=== PATIENT | female | born 1990 | race Caucasian/White ===

== ENCOUNTER 2017-07-25 23:06 | Emergency (ER) | payer SELFPAY ==
[2017-07-25] MEDS ORDERED: HYDROcodone/Acetaminophen 10/325 mg Tablet ONE (23:29)
[2017-07-25] MEDS ORDERED: Lidocaine 1% (PF) 30 ML VIAL ONE (23:36)
== END 2017-07-26 00:04 | disposition home or self-care (01) ==
LOC: ERS 23:06
DX: N76.4 Abscess of vulva (principal); F17.200 Nicotine dependence, unspecified, uncomplicated; E28.2 Polycystic ovarian syndrome
CPT/HCPCS: 56405; 87070; 87077; 87205; 99406; J2001

== ENCOUNTER 2019-04-19 13:50 | Emergency (ER) | payer SELFPAY ==
[2019-04-19] MEDS ORDERED: Adacel (T-DAP) 0.5 ML SYRINGE ONE (14:26)
[2019-04-19] MEDS ORDERED: HYDROcodone/Acetaminophen 10/325 mg Tablet ONE (14:36)
[2019-04-19] MEDS ORDERED: Lidocaine 4% Cream 5 GM TUBE w/ Tegaderm ONE (14:36)
[2019-04-19] MEDS ORDERED: Lidocaine 1% w/Epinephrine 1:100K 20 ML VIAL ONE (14:37)
--- NOTE | 2019-04-19 14:42 | RAD ---
XR Foot Lt 3 View STANDARD INDICATION: Stepped on a yardstick COMPARISON: None. FINDINGS: Bones: No acute fracture identified. Joints: Joints spaces appear preserved. Lisfranc alignment: Lisfranc alignment appears within normal limits. Soft tissues: No soft tissue injury demonstrated. No radiographic foreign body demonstrated. IMPRESSION: No acute osseous abnormality.
== END 2019-04-19 16:08 | disposition home or self-care (01) ==
LOC: ERS 13:50
DX: S91.312A Laceration without foreign body, left foot, initial encounter (principal); F17.210 Nicotine dependence, cigarettes, uncomplicated; W22.8XXA Striking against or struck by other objects, initial encounter
CPT/HCPCS: 12002; 90471; 90715

== ENCOUNTER 2019-04-30 13:52 | Emergency (ER) | payer SELFPAY | END 2019-04-30 14:18 | disposition home or self-care (01) | LOC: ERS 13:52 | DX: S91.312D Laceration without foreign body, left foot, subsequent encounter (principal); F17.210 Nicotine dependence, cigarettes, uncomplicated | CPT/HCPCS: 99282 ==

== ENCOUNTER 2019-05-06 13:11 | Emergency (ER) | payer OTHER, SELFPAY | END 2019-05-06 15:27 | disposition home or self-care (01) | LOC: ERS 13:11 | DX: S91.312D Laceration without foreign body, left foot, subsequent encounter (principal); F17.210 Nicotine dependence, cigarettes, uncomplicated; Z79.899 Other long term (current) drug therapy; X58.XXXD Exposure to other specified factors, subsequent encounter | CPT/HCPCS: 36416; 99283 ==

== ENCOUNTER 2019-05-21 14:40 | Emergency (ER) | payer SELFPAY ==
[2019-05-21] MEDS ORDERED: CEFAZOLIN 1 GM VIAL ONE (16:34)
[2019-05-22] MEDS ORDERED: Benzocaine 20% Spray 60 ML CAN ONE (13:09)
== END 2019-05-21 15:14 ==
LOC: ERS 14:40
DX: S91.312D Laceration without foreign body, left foot, subsequent encounter (principal); F17.210 Nicotine dependence, cigarettes, uncomplicated; X58.XXXD Exposure to other specified factors, subsequent encounter
CPT/HCPCS: J0690